=== PATIENT | female | born 1980 | race Caucasian/White ===

== ENCOUNTER 2020-07-10 23:26 | Emergency (ER) | payer OTHER, MEDICAID, SELFPAY ==
[2020-07-10 23:38] VITALS: BP 135/83; PULSE 129; RESP 20; TEMP 37.3; O2SAT 100
--- NOTE | 2020-07-10 23:41 | ED_ITS ---
HPI - Skin/Abscess/Foreign Bdy General Chief complaint: Skin/Abscess/Foreign Body Stated complaint: upper right arm abscess Time Seen by Provider: 07/10/20 23:40 Source: patient Mode of arrival: Ambulatory Limitations: no limitations History of Present Illness HPI narrative: Patient is a 39-year-old female. Is known IV drug abuser (heroin) here for evaluation of what she thinks is an abscess in her right upper arm. She states she did inject herself there in the past but she does not know exactly when. Over the past several days she has had no this redness and swelling and pain in that arm. Has never had an abscess in the past that his needed drained. Has had body aches and malaise. Related Data Previous Rx's Medication Instructions Recorded doxycycline hyclate 100 mg PO BID 7 Days #13 tab 07/11/20 Allergies Allergy/AdvReac Type Severity Reaction Status Date / Time No Known Drug Allergies Allergy Verified 07/11/20 00:49 Review of Systems Constitutional Constitutional: Reports chills, Reports fatigue and Reports fever(s) Cardiovascular Cardiovascular: Denies chest pain and Denies dyspnea Respiratory Respiratory: Denies dyspnea Integumentary/Breasts Comments: Large area of redness located laterally in the right upper extremity. Neurologic Neurologic: Denies behavioral changes Psychiatric Psychiatric: Denies behavioral changes Endocrine Endocrine: Reports fatigue Hematologic/Lymphatic On Anticoagulants: No Allergic/Immunologic Allergic/Immunologic: Denies urticaria Patient History Medical History Drug abuse Social History Smoking Status: Current every day smoker Exam Initial Vital Signs Initial Vital Signs: Vital Signs Temperature 99.2 F 07/10/20 23:38 Pulse Rate 129 H 07/10/20 23:38 Respiratory Rate 20 07/10/20 23:38 Blood Pressure 135/83 07/10/20 23:38 Pulse Oximetry 100 07/10/20 23:38 Const General: cooperative and healthy appearing Resp Effort & Inspection: normal respiratory effort Cardio Rate: tachycardic Skin Other: Large area of redness in the right upper extremity laterally with associated abscess Extrem Other: Right shoulder and right elbow has no tenderness with move Psych Appearance: grossly normal and well kempt Procedures Abscess I/D I&D #1: Site: upper extremity Side (if applicable): right Local Anesthetic: lidocaine 1% and with bicarb Amount of anesthesia used (mL): 5 Technique: incised with #11 blade Irrigation: No Packing used?: iodoform Course Orders Ordered: Discontinued Medications Diphtheria/Tetanus/Acell Pertussis (Tet,Diph,Pertuss(Acell),Vac/Pf 0.5 Ml Syringe) 0.5 ml IM .ONCE ONE Stop: 07/11/20 00:11 Last Admin: 07/11/20 00:14 Dose: 0.5 ml Documented by: COLLIN Doxycycline Hyclate (Doxycycline Hyclate 100 Mg Tablet) 100 mg PO NOW ONE Stop: 07/11/20 00:10 Last Admin: 07/11/20 00:15 Dose: 100 mg Documented by: COLLIN Lidocaine/Sodium Bicarbonate (Lido 1%/Sod Bicarb 8.4% (10ml) 10 Ml Syringe) 10 ml INJ NOW ONE Stop: 07/10/20 23:41 Last Admin: 07/11/20 00:16 Dose: 10 ml Documented by: COLLIN Vital Signs Vital signs: Vital Signs - 8 hr 07/10/20 23:38 07/11/20 00:28 Temperature 99.2 F Pulse Rate 129 H 108 H Respiratory Rate 20 18 Blood Pressure 135/83 130/79 Pulse Oximetry 100 99 MDM - Skin/Abscess/Foreign Bdy MDM Narrative Medical decision making narrative: Patient has a very large abscess with surrounding erythema in the right upper extremity. Does not appear to involve the shoulder or elbow joint. After bedside ultrasound shows the abscess that was incised with an 11 blade with return of a very large amount of purulent material. Given the size of the cavity packing was placed. Will start the patient on antibiotics given the area of cellulitis around the abscess. She is neurovascularly intact. She is given care instructions and return precautions. They expressed understanding and agreement. Discharge Plan Departure Patient Disposition: Home Clinical Impression: Abscess of skin or subcutaneous tissue Instructions: DI for Incision and Drainage of a Skin Abscess, DI for Skin Abscess Activity Restrictions/Additional Instructions: A prescription for antibiotics was electronically transmitted to [facility] in [place]. Your tetanus was also updated this evening. Expect some oozing from the site like we discussed. You can remove the packing at home on Tuesday evening like we discussed. Return to the emergency department for any new or worsening symptoms Prescriptions: New doxycycline hyclate 100 mg tablet 100 mg PO BID 7 Days Qty: 13 RF: 0
[2020-07-11] MEDS: TET,DIPH,PERTUSS(ACELL),VAC/PF 0.5 ML SYRINGE IM (00:14)
[2020-07-11] MEDS: DOXYCYCLINE HYCLATE 100 MG TABLET PO (00:15)
[2020-07-11] MEDS: LIDO 1%/SOD BICARB 8.4% (10ML) 10 ML SYRINGE INJ (00:16)
[2020-07-11 00:28] VITALS: BP 130/79; PULSE 108; RESP 18; O2SAT 99
== END 2020-07-11 00:29 | disposition home or self-care (01) ==
PROVIDERS: Emergency Provider Emergency Medicine
DX: L02.413 Cutaneous abscess of right upper limb (principal); R50.9 Fever, unspecified; R53.83 Other fatigue; F11.20 Opioid dependence, uncomplicated; Z23 Encounter for immunization
CPT/HCPCS: 10060; 90471; 99281; 99283; 90715

== ENCOUNTER 2020-11-02 00:22 | Emergency (ER) | payer OTHER, SELFPAY ==
[2020-11-02 00:26] VITALS: BP 159/85; PULSE 89; RESP 16; TEMP 36.8; O2SAT 100; BMI 23.5
--- NOTE | 2020-11-02 00:42 | ED.SKABFB ---
HPI - Skin/Abscess/Foreign Bdy General Chief complaint: Skin/Abscess/Foreign Body Stated complaint: Abscess on arm and leg Time Seen by Provider: 11/02/20 00:32 Source: patient Mode of arrival: Ambulatory Limitations: no limitations History of Present Illness HPI narrative: Patient is a 40-year-old female who is here for evaluation of potential abscess on her right upper arm. She stated that approximately 1 week ago she did inject herself with this area with heroin. Since that time she has had increasing pain and redness at the site. She has had abscesses in the past that have required drainage. She has not tried anything for the symptoms prior to arrival. Related Data Previous Rx's Medication Instructions Recorded doxycycline hyclate 100 mg PO BID 7 Days #14 tab 11/02/20 Allergies Allergy/AdvReac Type Severity Reaction Status Date / Time No Known Drug Allergies Allergy Verified 07/11/20 00:49 Review of Systems Constitutional Constitutional: Denies fever(s) Musculoskeletal Musculoskeletal: Denies tingling Comments: Right arm pain Integumentary/Breasts Comments: Redness in the right arm Neurologic Neurologic: Denies tingling Hematologic/Lymphatic On Anticoagulants: No Allergic/Immunologic Allergic/Immunologic: Reports system reviewed and no additional complaints, except as documented Patient History Medical History Drug abuse Social History Smoking Status: Current every day smoker Smoking Status: Current every day smoker alcohol intake frequency: holidays/special occasions only Substance Use Type: heroin Exam Initial Vital Signs Initial Vital Signs: Vital Signs Temperature 98.2 F 11/02/20 00:26 Pulse Rate 89 11/02/20 00:26 Respiratory Rate 16 11/02/20 00:26 Blood Pressure 159/85 H 11/02/20 00:26 Pulse Oximetry 100 11/02/20 00:26 Const General: cooperative and healthy appearing Cardio Pulses: radial pulses present on the right Skin Other: Patient with a large area of redness on the lateral aspect of the right upper arm over the deltoid. It is warm to the touch. There is no drainage from the area. Neuro General: patient alert and patient awake Sensory Exam: no sensory deficits noted Extrem Other: Limited range of motion of right shoulder secondary to discomfort Psych Appearance: grossly normal and well kempt Course Orders Ordered: Discontinued Medications Doxycycline Hyclate (Doxycycline Hyclate 100 Mg Tablet) 100 mg PO NOW ONE Stop: 11/02/20 00:43 Last Admin: 11/02/20 00:56 Dose: 100 mg Documented by: CLARKE Vital Signs Vital signs: Vital Signs - 8 hr 11/02/20 00:26 Temperature 98.2 F Pulse Rate 89 Respiratory Rate 16 Blood Pressure 159/85 H Pulse Oximetry 100 MDM - Skin/Abscess/Foreign Bdy MDM Narrative Medical decision making narrative: Bedside ultrasound of her right upper arm did not show any signs of an abscess. There was an obvious infection there given the warmth in the appearance so we will start her on antibiotics. During my evaluation she did not mention any abscesses on her leg. They were mentioned in the triage note. In the triage note they were draining. I did not evaluate the abscesses on her leg. Patient was given return precautions and follow-up instructions. She expressed understanding and agreement. Discharge Plan Departure Patient Disposition: Home Clinical Impression: Cellulitis Instructions: DI for Cellulitis -- Adult Activity Restrictions/Additional Instructions: The ultrasound today did not show any signs of an abscess so we will start you on antibiotics. Recommend Tylenol/ibuprofen for any discomfort. Start taking the antibiotics as directed and if your symptoms worsen please return to the emergency department for further evaluation. Prescriptions: New doxycycline hyclate 100 mg tablet 100 mg PO BID 7 Days Qty: 14 RF: 0
[2020-11-02] MEDS: DOXYCYCLINE HYCLATE 100 MG TABLET PO (00:56)
== END 2020-11-02 01:00 | disposition home or self-care (01) ==
PROVIDERS: Emergency Provider Emergency Medicine
DX: L03.113 Cellulitis of right upper limb (principal)
CPT/HCPCS: 99283